=== PATIENT | female | born 1990 | race Caucasian/White ===

== ENCOUNTER → 2016-05-26 | Outpatient (REF) | payer SELFPAY ==
[~2016-05-26] MED LIST: IBUP80TA PO; MOM30SS PO; PERCOCET PO; PNV-CAP5 PO; VICO5TAB16 PO; ZANT150T PO
[2016-05-26 17:04] LABS: FREE T4 0.92 NG/DL (0.76-1.46)
== END ==
LOC: M LABDRAW1 15:29
PROVIDERS: ATTEND Internal Medicine Endocrinology, Diabetes & Metabolism
DX: E06.2 Chronic thyroiditis with transient thyrotoxicosis (principal)

== ENCOUNTER 2016-05-28 10:18 | Emergency (ER) | payer OTHER, SELFPAY ==
[~2016-05-28 10:18] MED LIST changes: -VICO5TAB16 PO
[2016-05-28] MEDS ORDERED: LIDOCAINE 2% MDV 20 ML VIAL SC ONE (11:00)
[2016-05-28] MEDS ORDERED: TETANUS/DIPHTHERIA TOX ADSORB ADULT 0.5ML SYR/VIAL (90714) IM ONE (11:30)
[2016-05-28] MEDS ORDERED: VICO5TAB16 PO (11:51)
[2016-05-28 11:58] VITALS: BP 116/68
== END 2016-05-28 12:02 | disposition home or self-care (01) ==
LOC: M ED 11:43
DX: S61.011A Laceration without foreign body of right thumb without damage to nail, initial encounter (principal); W29.8XXA Contact with other powered hand tools and household machinery, initial encounter; Y92.89 Other specified places as the place of occurrence of the external cause; Y93.89 Activity, other specified; Y99.0 Civilian activity done for income or pay; Z88.1 Allergy status to other antibiotic agents; F17.210 Nicotine dependence, cigarettes, uncomplicated; E03.9 Hypothyroidism, unspecified

== ENCOUNTER → 2017-01-13 | Outpatient (REF) | payer BC ==
[~2017-01-13] MED LIST changes: +VICO5TAB16 PO
== END ==
LOC: M LABDRAW1 14:01
PROVIDERS: ATTEND Internal Medicine Endocrinology, Diabetes & Metabolism
DX: E06.2 Chronic thyroiditis with transient thyrotoxicosis (principal)

== ENCOUNTER → 2017-05-21 | Outpatient (CLI) | payer BC | LOC: M LAB 16:11 | DX: E04.0 Nontoxic diffuse goiter (principal) | CPT/HCPCS: 84443 ==

== ENCOUNTER 2017-06-22 07:38 | Emergency (ER) | payer BC ==
[2017-06-22] MEDS: ONDANSETRON 4 MG ORAL DISINTEGRATING TAB (S0181) PO (09:02)
== END 2017-06-22 09:31 | disposition home or self-care (01) ==
LOC: M ED 07:38
DX: S06.0X0A Concussion without loss of consciousness, initial encounter (principal); X58.XXXA Exposure to other specified factors, initial encounter; Y92.89 Other specified places as the place of occurrence of the external cause; Y93.01 Activity, walking, marching and hiking; J45.909 Unspecified asthma, uncomplicated; E03.9 Hypothyroidism, unspecified; F33.9 Major depressive disorder, recurrent, unspecified; F41.9 Anxiety disorder, unspecified; F17.200 Nicotine dependence, unspecified, uncomplicated; Z98.890 Other specified postprocedural states; Z88.1 Allergy status to other antibiotic agents
CPT/HCPCS: 70450

== ENCOUNTER 2017-09-07 17:23 | Emergency (ER) | payer MEDICAID, BC, SELFPAY | END 2017-09-07 19:25 | disposition home or self-care (01) | LOC: M ED 17:23 | DX: K04.7 Periapical abscess without sinus (principal); J30.9 Allergic rhinitis, unspecified; K08.89 Other specified disorders of teeth and supporting structures; H65.01 Acute serous otitis media, right ear; J45.909 Unspecified asthma, uncomplicated; F41.9 Anxiety disorder, unspecified; F32.9 Major depressive disorder, single episode, unspecified; Z72.0 Tobacco use; Z79.899 Other long term (current) drug therapy; Z88.8 Allergy status to other drugs, medicaments and biological substances | CPT/HCPCS: 99283 ==

== ENCOUNTER 2018-02-09 22:54 | Emergency (ER) | payer MEDICAID ==
[2018-02-10 00:04] LABS: KETONE, URINE AUTO RFX 1+ mg/dL (NEGATIVE); LEUKOCYTE ESTERASE UR AUTO RFX NEGATIVE (NEGATIVE); MUCUS, URINE RFX SMALL (NEGATIVE); NITRITE, URINE AUTO RFX NEGATIVE (NEGATIVE); RBC, URINE AUTO RFX 2 /HPF (0-3); SPECIFIC GRAVITY UR AUTO RFX 1.008 (1.002-1.035); SQUAM EPITHELIAL CELL UR AURFX 1 /HPF (0-6); WBC, URINE AUTO RFX 1 /HPF (0-3)
[2018-02-10] MEDS: GI COCKTAIL 50ML BTL(HYOSCYAMINE/MAALOX/LIDOCAINE VISCOUS)(1:3:1) PO (00:19)
[2018-02-10] MEDS: KETOROLAC 30 MG/ML VIAL (J1885) IV (00:19)
[2018-02-10] MEDS: ONDANSETRON 4MG/2ML VIAL (J2405) IV (00:19)
[2018-02-10 00:47] LABS: ALBUMIN 3.8 GM/DL (3.2-5.2); ALBUMIN/GLOBULIN RATIO 1.12 (1.00-1.93); ALKALINE PHOSPHATASE 68 U/L (45-117); ALT/SGPT 34 U/L (12-78); ANION GAP 9 MEQ/L (8-16); AST/SGOT 20 U/L (7-37); BILIRUBIN,DIRECT 0.2 MG/DL (0.0-0.2); BILIRUBIN,TOTAL 0.7 MG/DL (0.2-1.0); BLOOD UREA NITROGEN 6 MG/DL (7-18); CALCIUM LEVEL 8.7 MG/DL (8.5-10.1); CARBON DIOXIDE LEVEL 27 MEQ/L (21-32); CHLORIDE LEVEL 102 MEQ/L (98-107); CREATININE FOR GFR 0.86 MG/DL (0.55-1.30); GLOMERULAR FILTRATION RATE > 60.0 (>60); GLUCOSE, FASTING 64 MG/DL (70-100); LIPASE 35 U/L (73-393); POTASSIUM SERUM 3.4 MEQ/L (3.5-5.1); SODIUM LEVEL 138 MEQ/L (136-145); TOTAL PROTEIN 7.2 GM/DL (6.4-8.2)
[2018-02-10 00:49] LABS: BASO % 0.2 % (0.0-1.0); EOS # 0.1 10^3/uL (0.0-0.50); EOS % 1.4 % (0.0-3.0); HEMATOCRIT 44.7 % (36.0-47.0); HEMOGLOBIN 15.4 g/dl (12.0-15.5); IMMATURE GRANULOCYTE % 0.4 % (0-3.0); LYMPH # 2.2 10^3/uL (1.5-6.5); LYMPH % 21.4 % (24.0-44.0); MEAN CORPUSCULAR HEMOGLOBIN 32.8 pg (27.0-33.0); MEAN CORPUSCULAR HGB CONC 34.5 g/dl (32.0-36.5); MEAN CORPUSCULAR VOLUME 95.1 fl (80.0-96.0); MONO # 0.7 10^3/uL (0.0-0.8); MONO % 7.2 % (0.0-5.0); NEUTROPHILS # 7.1 10^3/uL (1.8-7.7); NEUTROPHILS % 69.4 % (36.0-66.0); PLATELET COUNT, AUTOMATED 272 10^3/uL (150-450); RED CELL DISTRIBUTION WIDTH 11.9 % (11.5-14.5); WHITE BLOOD COUNT 10.2 10^3/uL (4.0-10.0)
[2018-02-10 01:24] LABS: CONTROL LINE HCG INT CTR LINE PRESENT; HCG, SERUM QUALITATIVE NEGATIVE (NEGATIVE)
== END 2018-02-10 03:43 | disposition home or self-care (01) ==
LOC: M ED 22:54
DX: R10.13 Epigastric pain (principal); F17.210 Nicotine dependence, cigarettes, uncomplicated; Z88.1 Allergy status to other antibiotic agents
CPT/HCPCS: J2405

== ENCOUNTER 2018-02-25 17:51 | Emergency (ER) | payer MEDICAID ==
[2018-02-25] MEDS: NS 1,000 ML IV (18:40)
[2018-02-25] MEDS: ONDANSETRON 4MG/2ML VIAL (J2405) IV ×2 (18:40→22:45)
[2018-02-25] MEDS: MORPHINE 4 MG/ML 1ML VIAL/SYRINGE (J2270) IV (18:41)
[2018-02-25 18:54] LABS: KETONE, URINE AUTO RFX NEGATIVE (NEGATIVE); LEUKOCYTE ESTERASE UR AUTO RFX NEGATIVE (NEGATIVE); MUCUS, URINE RFX SMALL (NEGATIVE); NITRITE, URINE AUTO RFX NEGATIVE (NEGATIVE); RBC, URINE AUTO RFX 2 /HPF (0-3); SPECIFIC GRAVITY UR AUTO RFX 1.004 (1.002-1.035); SQUAM EPITHELIAL CELL UR AURFX 1 /HPF (0-6); WBC, URINE AUTO RFX 0 /HPF (0-3)
[2018-02-25 19:03] LABS: BASO # 0.1 10^3/uL (0.0-0.2); BASO % 0.5 % (0.0-1.0); EOS # 0.3 10^3/uL (0.0-0.50); EOS % 1.3 % (0.0-3.0); HEMATOCRIT 53.9 % (36.0-47.0); HEMOGLOBIN 18.5 g/dl (12.0-15.5); IMMATURE GRANULOCYTE % 1.2 % (0-3.0); LYMPH # 1.8 10^3/uL (1.5-6.5); LYMPH % 9.2 % (24.0-44.0); MEAN CORPUSCULAR HEMOGLOBIN 32.4 pg (27.0-33.0); MEAN CORPUSCULAR HGB CONC 34.3 g/dl (32.0-36.5); MEAN CORPUSCULAR VOLUME 94.4 fl (80.0-96.0); MONO # 1.3 10^3/uL (0.0-0.8); MONO % 6.7 % (0.0-5.0); NEUTROPHILS # 16.1 10^3/uL (1.8-7.7); NEUTROPHILS % 81.1 % (36.0-66.0); PLATELET COUNT, AUTOMATED 367 10^3/uL (150-450); RED BLOOD COUNT 5.71 10^6/uL (4.00-5.40); WHITE BLOOD COUNT 19.9 10^3/uL (4.0-10.0)
[2018-02-25 19:15] LABS: CONTROL LINE UCG INT CTR LINE PRESENT; URINE PREG TEST NEGATIVE (NEGATIVE)
[2018-02-25 19:21] LABS: ALBUMIN 4.1 GM/DL (3.2-5.2); ALBUMIN/GLOBULIN RATIO 1.32 (1.00-1.93); ALKALINE PHOSPHATASE 86 U/L (45-117); ALT/SGPT 38 U/L (12-78); ANION GAP 9 MEQ/L (8-16); AST/SGOT 19 U/L (7-37); BILIRUBIN,DIRECT 0.1 MG/DL (0.0-0.2); BILIRUBIN,TOTAL 0.6 MG/DL (0.2-1.0); BLOOD UREA NITROGEN 8 MG/DL (7-18); CALCIUM LEVEL 8.7 MG/DL (8.5-10.1); CARBON DIOXIDE LEVEL 27 MEQ/L (21-32); CHLORIDE LEVEL 103 MEQ/L (98-107); CREATININE FOR GFR 0.92 MG/DL (0.55-1.30); GLOMERULAR FILTRATION RATE > 60.0 (>60); GLUCOSE, FASTING 84 MG/DL (70-100); LIPASE 46 U/L (73-393); POTASSIUM SERUM 3.9 MEQ/L (3.5-5.1); SODIUM LEVEL 139 MEQ/L (136-145); TOTAL PROTEIN 7.2 GM/DL (6.4-8.2)
[2018-02-25 19:21] LABS: LACTIC ACID SEPSIS PROTOCOL 0.9 MMOL/L (0.4-2.0)
[2018-02-25] MEDS ORDERED: ISOVUE-370 76% 100ML VIAL (Q9967) As Ordered (19:24)
[2018-02-25] MEDS: KETOROLAC 30 MG/ML VIAL (J1885) IV (20:45)
[2018-02-25] MEDS: VANCOMYCIN ORAL SOL 250MG/5ML ORAL SYRINGE PO (22:04)
[2018-02-25] MEDS: OXYCODONE/APAP 5MG/325MG(BULK FOR ED) 1 TABLET PO (22:45)
== END 2018-02-25 23:20 | disposition home or self-care (01) ==
LOC: M ED 17:51
DX: A04.72 Enterocolitis due to Clostridium difficile, not specified as recurrent (principal)
CPT/HCPCS: J2270

== ENCOUNTER 2018-06-24 15:38 | Emergency (ER) | payer OTHER ==
[~2018-06-24] VITALS: Ht 157.5 cm; Wt 96.0 kg
[~2018-06-24 15:38] MED LIST changes: +ACET-683 PO; +CLEO300C2 PO; +FLAG500T PO; +FLON1SPR; +MOTR200T44 PO; +OMEP40CA2 PO; +OXYC1TAB23 PO; +PERC5TAB12 PO; -PERCOCET PO; +TYLE500T78 PO; +VANC125C3 PO; -VICO5TAB16 PO; +VICO5TAB17 PO; +ZOFR4TAB14 PO; +ZYRT10CA5 PO
--- NOTE | 2018-06-24 17:04 | REP ---
Clinical: Trauma. Foreign body. Technique: AP, lateral, bilateral oblique views left foot. Findings: At the site of BB marker, there is a small cyn of presumed glass measuring approximately 3.5 mm maximal length and 1.5 mm maximal width. The osseous structures and joint spaces are intact and normal. There is no evidence for acute fracture or dislocation. Surrounding soft tissues are unremarkable. No subcutaneous emphysema or radiodense foreign body. Impression: Small foreign body. No acute fracture or dislocation. Electronically Signed by Yo Mills MD 06/24/2018 04:55 P
[2018-06-24] MEDS ORDERED: MECLIZINE 25 MG TABLET PO ONE (17:15)
[2018-06-24] MEDS ORDERED: LIDOCAINE 2% W/EPIN INJ 20ML **PRES FREE INJ ONE (17:15)
--- NOTE | 2018-06-24 17:36 | REP ---
Clinical: Dizziness . Comparison: 06/22/2017 . Findings: The ventricles, sulci, and cisterns are normal in position and appearance. Brown-white differentiation is maintained. No acute intracranial hemorrhage, mass/mass effect, pathology or trauma/injury. No evidence for acute infarction. No extra-axial fluid collection. Calvarium is intact. Minimal mucoperiosteal changes involving the ethmoid and sphenoid sinuses. Impression: Normal noncontrast head CT. No evidence for acute intracranial pathology or trauma/injury. Mild sinus disease. Electronically Signed by Yo Mills MD 06/24/2018 05:29 P
[2018-06-24 18:06] LABS: BASO % 0.2 % (0.0-1.0); EOS # 0.2 10^3/uL (0.0-0.50); EOS % 1.8 % (0.0-3.0); HEMATOCRIT 45.7 % (36.0-47.0); HEMOGLOBIN 15.8 g/dl (12.0-15.5); LYMPH # 1.9 10^3/uL (1.5-6.5); MEAN CORPUSCULAR HEMOGLOBIN 32.5 pg (27.0-33.0); MEAN CORPUSCULAR HGB CONC 34.6 g/dl (32.0-36.5); MONO # 0.6 10^3/uL (0.0-0.8); MONO % 6.7 % (0.0-5.0); NEUTROPHILS # 6.1 10^3/uL (1.8-7.7); PLATELET COUNT, AUTOMATED 303 10^3/uL (150-450); RED BLOOD COUNT 4.86 10^6/uL (4.00-5.40); WHITE BLOOD COUNT 8.8 10^3/uL (4.0-10.0)
[2018-06-24 18:44] LABS: ALBUMIN 4.1 GM/DL (3.2-5.2); ALT/SGPT 48 U/L (12-78); BILIRUBIN,DIRECT 0.1 MG/DL (0.0-0.2); BILIRUBIN,TOTAL 0.6 MG/DL (0.2-1.0); BLOOD UREA NITROGEN 9 MG/DL (7-18); CALCIUM LEVEL 8.9 MG/DL (8.5-10.1); CARBON DIOXIDE LEVEL 27 MEQ/L (21-32); CHLORIDE LEVEL 106 MEQ/L (98-107); GLOMERULAR FILTRATION RATE > 60.0 (>60); GLUCOSE, FASTING 81 MG/DL (70-100); POTASSIUM SERUM 4.4 MEQ/L (3.5-5.1); SODIUM LEVEL 141 MEQ/L (136-145); TOTAL PROTEIN 7.2 GM/DL (6.4-8.2)
[2018-06-24 18:51] VITALS: BP 108/59
[2018-06-24] MEDS ORDERED: MECL-68 PO (18:57)
[2018-06-24] MEDS ORDERED: LEVA750T7 PO (18:57)
== END 2018-06-24 19:06 | disposition home or self-care (01) ==
LOC: M ED 15:38
DX: S90.852A Superficial foreign body, left foot, initial encounter (principal); W45.8XXA Other foreign body or object entering through skin, initial encounter; Y92.9 Unspecified place or not applicable; Y93.89 Activity, other specified; Y99.9 Unspecified external cause status; R42 Dizziness and giddiness; J01.90 Acute sinusitis, unspecified; J45.909 Unspecified asthma, uncomplicated; K21.9 Gastro-esophageal reflux disease without esophagitis; F41.9 Anxiety disorder, unspecified; Z72.0 Tobacco use; Z88.8 Allergy status to other drugs, medicaments and biological substances

== ENCOUNTER → 2018-06-29 | Outpatient (REF) | payer OTHER ==
[~2018-06-29] MED LIST changes: +LEVA750T7 PO; +MECL-68 PO
[2018-06-29 13:56] LABS: FREE T4 1.02 NG/DL (0.76-1.46); THYROID STIMULATING HORMONE 2.73 uIU/ML (0.358-3.740)
== END ==
LOC: M SFHCPLAZ 11:57
PROVIDERS: ATTEND Family Medicine
DX: F32.9 Major depressive disorder, single episode, unspecified (principal)

== ENCOUNTER 2019-04-03 19:41 | Emergency (ER) | payer OTHER ==
[~2019-04-03] VITALS: Ht 157.5 cm; Wt 104.5 kg
[~2019-04-03 19:41] MED LIST changes: -MECL-68 PO; +MECL1TAB31 PO; -OMEP40CA2 PO; +OMEP40CA97 PO
[2019-04-03] MEDS ORDERED: ACET-683 PO (20:13)
[2019-04-03] MEDS ORDERED: diphenhydrAMINE INJ 50MG/ML VIAL (J1200) IV STA (21:18)
[2019-04-03] MEDS ORDERED: BENZOCAINE 10% 9GM TUBE (ANBESOL) TOP STA (21:18)
[2019-04-03] MEDS ORDERED: AUGMENTIN 875 MG TAB PO ONE (21:30)
[2019-04-03] MEDS ORDERED: KETOROLAC 30 MG/ML VIAL (J1885) IV ONE (21:30)
[2019-04-03] MEDS ORDERED: METOCLOPRAMIDE INJ 10MG/2ML VIAL (J2765) IV ONE (21:30)
[2019-04-03 21:44] LABS: BASO % 0.4 % (0.0-1.0); EOS # 0.1 10^3/uL (0.0-0.5); HEMATOCRIT 50.8 % (36.0-47.0); HEMOGLOBIN 16.5 g/dl (12.0-15.5); LYMPH # 2.1 10^3/uL (1.5-5.0); LYMPH % 21.3 % (24.0-44.0); MEAN CORPUSCULAR HEMOGLOBIN 31.9 pg (27.0-33.0); MEAN CORPUSCULAR HGB CONC 32.5 g/dl (32.0-36.5); MEAN CORPUSCULAR VOLUME 98.1 fl (80.0-96.0); MONO # 0.7 10^3/uL (0.0-0.8); NEUTROPHILS # 6.7 10^3/uL (1.5-8.5); NEUTROPHILS % 69.8 % (36.0-66.0); PLATELET COUNT, AUTOMATED 285 10^3/uL (150-450); RED BLOOD COUNT 5.18 10^6/uL (4.00-5.40); WHITE BLOOD COUNT 9.6 10^3/uL (4.0-10.0)
--- NOTE | 2019-04-03 23:04 | REPVR ---
PROCEDURE INFORMATION: Exam: CT Head Without Contrast Exam date and time: 04/03/2019 10:32 PM Age: 28 years old Clinical indication: Pain; Headache; Additional info: New LEONARDO, dizziness TECHNIQUE: Imaging protocol: Computed tomography of the head without contrast. Radiation optimization: All CT scans at this facility use at least one of these dose optimization techniques: automated exposure control; mA and/or kV adjustment per patient size (includes targeted exams where dose is matched to clinical indication); or iterative reconstruction. COMPARISON: CT Head without contrast 06/24/2018 5:08 PM FINDINGS: Brain: Normal. No hemorrhage. Unremarkable white matter. No mass effect. Ventricles: Normal. No ventriculomegaly. Bones/joints: Unremarkable. No acute fracture. Sinuses: Visualized sinuses are unremarkable. No fluid levels. Mastoid air cells: Visualized mastoid air cells are well aerated. Soft tissues: Unremarkable. IMPRESSION: Negative noncontrast head CT without change from 06/24/2018. Electronically signed by: Tommy Browne On 04/03/2019 23:04:29 PM
[2019-04-03] MEDS ORDERED: MECLIZINE 25 MG TABLET PO ONE (23:30)
[2019-04-03] MEDS ORDERED: diazePAM 5 MG TAB PO ONE (23:30)
[2019-04-04] MEDS ORDERED: CLEO300C2 PO (00:12)
[2019-04-04] MEDS ORDERED: MECL1TAB31 PO (00:12)
[2019-04-04] MEDS ORDERED: ANBE20GE TOP (00:12)
[2019-04-04 00:27] VITALS: BP 131/88
== END 2019-04-04 00:28 | disposition home or self-care (01) ==
LOC: M ED 19:41
DX: K04.7 Periapical abscess without sinus (principal); R51 Headache; J45.909 Unspecified asthma, uncomplicated; E03.9 Hypothyroidism, unspecified; Z88.1 Allergy status to other antibiotic agents
CPT/HCPCS: 70450; 80047; 84702; 85025; 96374; 96375; 99283; J1200; J1885; J2765

== ENCOUNTER → 2019-05-08 | Outpatient (CLI) | payer OTHER ==
[~2019-05-08] MED LIST changes: +ANBE20GE TOP
--- NOTE | 2019-05-08 12:13 | REP ---
Clinical: Cough . Comparison: 01/01/2016 . Technique: PA and lateral. Findings: The mediastinum and cardiac silhouette are normal. The lung kinney are clear and without acute consolidation, effusion, or pneumothorax. The skeletal structures are intact and normal. Impression: 1. No acute cardiopulmonary process. Electronically Signed by Yo Mills MD 05/08/2019 12:05 P
== END ==
LOC: M RAD 11:49
PROVIDERS: ATTEND Student in an Organized Health Care Education/Training Program
DX: R05 Cough (principal)

== ENCOUNTER 2019-05-25 18:28 | Emergency (ER) | payer OTHER ==
[~2019-05-25] VITALS: Ht 157.5 cm; Wt 99.2 kg
[2019-05-25] MEDS ORDERED: Dayquil PO (18:41)
[2019-05-25] MEDS ORDERED: AMOX875T2 (18:41)
[2019-05-25] MEDS ORDERED: MIRE1IUD IU (18:42)
[2019-05-25 19:23] LABS: BASO % 0.4 % (0.0-1.0); EOS # 0.1 10^3/uL (0.0-0.5); EOS % 1.2 % (0.0-3.0); HEMOGLOBIN 15.7 g/dl (12.0-15.5); LYMPH # 2.5 10^3/uL (1.5-5.0); MEAN CORPUSCULAR HGB CONC 34.9 g/dl (32.0-36.5); MEAN CORPUSCULAR VOLUME 94.5 fl (80.0-96.0); MONO # 0.7 10^3/uL (0.0-0.8); MONO % 7.1 % (0.0-5.0); NEUTROPHILS # 6.9 10^3/uL (1.5-8.5); NEUTROPHILS % 67.1 % (36.0-66.0); PLATELET COUNT, AUTOMATED 367 10^3/uL (150-450); RED BLOOD COUNT 4.76 10^6/uL (4.00-5.40); WHITE BLOOD COUNT 10.3 10^3/uL (4.0-10.0)
[2019-05-25 19:32] LABS: INR 1.03; PROTHROMBIN TIME 13.2 SECONDS (11.8-14.0)
[2019-05-25 19:33] LABS: PARTIAL THROMBOPLASTIN TIME 32.4 SECONDS (25.0-38.4)
[2019-05-25 19:38] LABS: HCG, SERUM QUALITATIVE NEGATIVE (NEGATIVE)
[2019-05-25 19:45] LABS: ALBUMIN 4.5 GM/DL (3.2-5.2); ALT/SGPT 62 U/L (12-78); BILIRUBIN,DIRECT 0.1 MG/DL (0.0-0.2); BILIRUBIN,TOTAL 0.5 MG/DL (0.2-1.0); BLOOD UREA NITROGEN 6 MG/DL (7-18); CALCIUM LEVEL 9.4 MG/DL (8.5-10.1); CARBON DIOXIDE LEVEL 26 MEQ/L (21-32); CHLORIDE LEVEL 101 MEQ/L (98-107); CK-MB VALUE MASS 1.1 NG/ML (<3.6); CPK CREATINE PHOSPHOKINASE 231 U/L (26-192); CREATININE FOR GFR 0.82 MG/DL (0.55-1.30); FREE T4 0.87 NG/DL (0.76-1.46); GLOMERULAR FILTRATION RATE > 60.0 (>60); GLUCOSE, FASTING 74 MG/DL (70-100); HCG, SERUM QUANTITATIVE < 1.0 MIU/ML; MB/CK RELATIVE INDEX 0.48 (< OR =4); NT-PRO BNP 18 PG/ML (<125); POTASSIUM SERUM 3.4 MEQ/L (3.5-5.1); SODIUM LEVEL 136 MEQ/L (136-145); TOTAL PROTEIN 7.9 GM/DL (6.4-8.2); TROPONIN I < 0.02 NG/ML (< 0.10)
--- NOTE | 2019-05-25 20:10 | REP ---
Portable chest, 07:52 p.m., single AP view with the patient upright: Comparison is the PA and lateral chest dated 05/08/2009. The lung kinney are clear. The cardiac size is normal. The ernie, mediastinum, and skeletal structures are unremarkable. Impression: Negative portable chest. There is no interval change. Electronically Signed by Darell Rainey MD 05/25/2019 08:01 P
[2019-05-25 20:29] LABS: D-DIMER QUANT 348.17 ng/ml (<500)
[2019-05-25] MEDS ORDERED: KETOROLAC 30 MG/ML VIAL (J1885) IV ONE (20:45)
[2019-05-25] MEDS ORDERED: KETO10TAB PO (21:46)
[2019-05-25] MEDS ORDERED: Holter Monitor (21:47)
[2019-05-25 21:57] VITALS: BP 114/62
--- NOTE | 2019-05-25 23:24 | ECGEPIP ---
[facility] - ED Test Date: 2019-05-25 Pat Name: RADHA WHEELER Department: Room: - Gender: Female Property Valuer: LENA : 1990 Requested By: TD Fu Order Number: [id number] Reading MD: Td Fernandez Measurements Intervals [place] Rate: 88 P: 37 NH: 127 QRS: 107 QRSD: 104 T: 24 QT: 364 QTc: 442 Interpretive Statements SINUS RHYTHM WITH SINUS ARRHYTHMIA MARKED RIGHT AXIS DEVIATION Nonspecific ST-T wave abnormalities Comparison tracing not on file Electronically Signed on 05-25-2019 23:24:43 EST by Td Fernandez
== END 2019-05-25 22:03 | disposition home or self-care (01) ==
LOC: M ED 18:28
DX: R00.2 Palpitations (principal); R07.89 Other chest pain; J45.909 Unspecified asthma, uncomplicated; E03.9 Hypothyroidism, unspecified; F17.200 Nicotine dependence, unspecified, uncomplicated; Z88.1 Allergy status to other antibiotic agents; Z79.2 Long term (current) use of antibiotics; Z79.899 Other long term (current) drug therapy; Z97.5 Presence of (intrauterine) contraceptive device
CPT/HCPCS: 71045; 80048; 80076; 82550; 82553; 83880; 84439; 84443; 84702; 84703; 85025; 85379; 85610; 85730; 93005; 93041; 94760; 96374; 99285; J1885

== ENCOUNTER → 2020-01-04 | Outpatient (CLI) | payer SELFPAY ==
[~2020-01-04] MED LIST changes: +AMOX875T2; +Dayquil PO; +Holter Monitor; +KETO10TAB PO; +MIRE1IUD IU
== END ==
LOC: M LABSMTC 13:56
PROVIDERS: ATTEND Pediatrics
DX: Z20.828 Contact with and (suspected) exposure to other viral communicable diseases (principal)

== ENCOUNTER → 2020-03-04 | Outpatient (CLI) | payer SELFPAY | LOC: M LABSMTC 19:23 | PROVIDERS: ATTEND Pediatrics | DX: Z11.59 Encounter for screening for other viral diseases (principal) ==

== ENCOUNTER → 2021-02-07 | Outpatient (CLI) | payer OTHER ==
[~2021-02-07] MED LIST changes: +OMEP40CA4 PO; -OMEP40CA97 PO
[2021-02-07 17:44] LABS: BASO % 0.5 % (0.0-1.0); EOS # 0.1 10^3/uL (0.0-0.5); HEMATOCRIT 46.8 % (36.0-47.0); HEMOGLOBIN 15.8 g/dl (12.0-15.5); LYMPH # 1.5 10^3/uL (1.5-5.0); MEAN CORPUSCULAR HGB CONC 33.8 g/dl (32.0-36.5); MEAN CORPUSCULAR VOLUME 94.9 fl (80.0-96.0); MONO # 0.4 10^3/uL (0.0-0.8); MONO % 8.6 % (2.0-8.0); NEUTROPHILS # 2.5 10^3/uL (1.5-8.5); NEUTROPHILS % 55.7 % (36.0-66.0); PLATELET COUNT, AUTOMATED 258 10^3/uL (150-450); RED BLOOD COUNT 4.93 10^6/uL (4.00-5.40); WHITE BLOOD COUNT 4.4 10^3/uL (4.0-10.0)
[2021-02-07 18:26] LABS: ERYTHROCYTE SEDIMENTATION RATE 5 mm/hr (0-20)
[2021-02-07 18:27] LABS: ALBUMIN 3.8 GM/DL (3.2-5.2); ALT/SGPT 45 U/L (12-78); BILIRUBIN,TOTAL 0.3 MG/DL (0.2-1.0); BLOOD UREA NITROGEN 8 MG/DL (7-18); CALCIUM LEVEL 8.8 MG/DL (8.5-10.1); CARBON DIOXIDE LEVEL 27 MEQ/L (21-32); CHLORIDE LEVEL 106 MEQ/L (98-107); CREATININE FOR GFR 0.73 MG/DL (0.55-1.30); GLOMERULAR FILTRATION RATE > 60.0 (>60); GLUCOSE, FASTING 92 MG/DL (70-100); POTASSIUM SERUM 4.2 MEQ/L (3.5-5.1); SODIUM LEVEL 139 MEQ/L (136-145)
== END ==
LOC: M PLALAB 14:40
PROVIDERS: ATTEND Physician Assistant
DX: R42 Dizziness and giddiness (principal)

== ENCOUNTER 2021-02-25 01:36 | Emergency (ER) | payer OTHER ==
[~2021-02-25] VITALS: Ht 157.5 cm; Wt 90.0 kg
[2021-02-25] MEDS ORDERED: CLIN-250 (02:11)
[2021-02-25 08:32] VITALS: BP 127/81
== END 2021-02-25 09:02 | disposition home or self-care (01) ==
LOC: M ED 01:36
DX: L81.9 Disorder of pigmentation, unspecified (principal); J45.909 Unspecified asthma, uncomplicated; Z88.1 Allergy status to other antibiotic agents; Z87.891 Personal history of nicotine dependence

== ENCOUNTER → 2021-03-05 | Outpatient (CLI) | payer OTHER ==
[~2021-03-05] MED LIST changes: +CLIN-250; +PROHANCE 279.3MG/ML 15ML VIAL ONE; +PROHANCE 279.3MG/ML 5ML VIAL ONE
--- NOTE | 2021-03-06 03:39 | REPVR ---
PROCEDURE INFORMATION: Exam: MR Head Without and With Contrast Exam date and time: 03/05/2021 4:14 PM Age: 30 years old Clinical indication: Pain; Headache; Additional info: Dizziness w/ dominique's w/ fatigue TECHNIQUE: Imaging protocol: MR of the head without and with intravenous contrast. Contrast material: PROHANCE; Contrast volume: 18 ml; Contrast route: INTRAVENOUS (IV); COMPARISON: CT Head without contrast 04/03/2019 10:19 PM FINDINGS: Brain: No restricted diffusion within the brain to suggest an acute infarct. Artifactual signal is identified on the axial FLAIR sequence. When correlated with T2 images, there is no significant cerebral white matter disease. No abnormally enhancing intracranial mass is identified. No cerebral edema. Cerebral ventricles: No ventriculomegaly. Bones/joints: There is diffuse nonspecific T1 hypointensity of the skull. This can be associated with red marrow reconversion and marrow hyperplasia, although additional pathology cannot be excluded. Paranasal sinuses: Mucosal thickening with mucous retention cysts or polyps in the left maxillary sinus and right sphenoid sinus. Minimal mucosal thickening of the right maxillary sinus and left frontal sinus. Mucosal thickening of ethmoid air cells bilaterally, most significant anteriorly. Mastoid air cells: Mild effusions within mastoid air cells bilaterally. Internal auditory canals: Evaluation of the internal auditory canals is limited on this study. Orbital cavity: Artifact limits evaluation of the bilateral orbits. Soft tissues: Unremarkable, as visualized. IMPRESSION: 1. No acute infarct. No abnormally enhancing intracranial mass is identified. 2. Mild effusions within mastoid air cells bilaterally. 3. Paranasal sinus disease. 4. Additional findings described above. Electronically signed by: Jona Stone On 03/06/2021 03:38:42 AM
== END ==
LOC: M PLAIMG 14:29
PROVIDERS: ATTEND Physician Assistant
DX: R42 Dizziness and giddiness (principal); R53.83 Other fatigue; R50.9 Fever, unspecified

== ENCOUNTER 2021-05-08 18:59 | Emergency (ER) | payer OTHER ==
[~2021-05-08] VITALS: Ht 157.5 cm; Wt 89.7 kg
[~2021-05-08 18:59] MED LIST changes: -PROHANCE 279.3MG/ML 15ML VIAL ONE; -PROHANCE 279.3MG/ML 5ML VIAL ONE
[2021-05-08] MEDS ORDERED: ACET650T15 PO (19:20)
[2021-05-08] MEDS ORDERED: ACET-683 PO (19:20)
[2021-05-08 20:16] LABS: URINE PREG TEST NEGATIVE (NEGATIVE)
[2021-05-09] MEDS ORDERED: IBUPROFEN 600MG TAB PO ONE (00:45)
[2021-05-09] MEDS ORDERED: IBUPROFEN 800 MG TAB PO ONE (00:50)
[2021-05-09 02:46] VITALS: BP 114/64
== END 2021-05-09 02:47 | disposition home or self-care (01) ==
LOC: M ED 18:59
DX: S06.0X0A Concussion without loss of consciousness, initial encounter (principal); W00.0XXA Fall on same level due to ice and snow, initial encounter; Y92.9 Unspecified place or not applicable; Y93.9 Activity, unspecified; Y99.9 Unspecified external cause status; F17.200 Nicotine dependence, unspecified, uncomplicated; Z88.8 Allergy status to other drugs, medicaments and biological substances; J32.0 Chronic maxillary sinusitis

== ENCOUNTER 2021-06-30 21:46 | Emergency (ER) | payer OTHER ==
[~2021-06-30] VITALS: Ht 157.5 cm; Wt 88.6 kg
[~2021-06-30 21:46] MED LIST changes: +ACET650T15 PO
[2021-06-30 21:47] VITALS: BP 132/72
== END 2021-06-30 23:52 | disposition left against medical advice (07) ==
LOC: M ED 21:46
DX: Z53.21 Procedure and treatment not carried out due to patient leaving prior to being seen by health care provider (principal)

== ENCOUNTER 2022-01-23 20:10 | Emergency (ER) | payer OTHER ==
[~2022-01-23] VITALS: Ht 157.5 cm; Wt 88.3 kg
[2022-01-23 20:52] LABS: BASO # 0.1 10^3/uL (0.0-0.2); BASO % 0.6 % (0.0-1.0); EOS # 0.2 10^3/uL (0.0-0.5); EOS % 2.7 % (0.0-3.0); HEMATOCRIT 42.5 % (36.0-47.0); HEMOGLOBIN 14.6 g/dl (12.0-15.5); LYMPH # 2.3 10^3/uL (1.5-5.0); MEAN CORPUSCULAR HGB CONC 34.4 g/dl (32.0-36.5); MEAN CORPUSCULAR VOLUME 93.2 fl (80.0-96.0); MONO # 0.5 10^3/uL (0.0-0.8); MONO % 6.2 % (2.0-8.0); NEUTROPHILS # 5.6 10^3/uL (1.5-8.5); NEUTROPHILS % 64.2 % (36.0-66.0); PLATELET COUNT, AUTOMATED 277 10^3/uL (150-450); RED BLOOD COUNT 4.56 10^6/uL (4.00-5.40); WHITE BLOOD COUNT 8.8 10^3/uL (4.0-10.0)
[2022-01-23 21:29] LABS: HCG, SERUM QUALITATIVE NEGATIVE (NEGATIVE)
[2022-01-23 21:34] LABS: CK-MB VALUE MASS 3.7 NG/ML (<3.6); CPK CREATINE PHOSPHOKINASE 239 U/L (26-192); MB/CK RELATIVE INDEX 1.55 (< OR =4)
[2022-01-23 21:42] LABS: ALBUMIN 3.9 GM/DL (3.2-5.2); ALT/SGPT 24 U/L (12-78); BILIRUBIN,DIRECT 0.1 MG/DL (0.0-0.2); BILIRUBIN,TOTAL 0.4 MG/DL (0.2-1.0); BLOOD UREA NITROGEN 10 MG/DL (7-18); CALCIUM LEVEL 8.7 MG/DL (8.5-10.1); CARBON DIOXIDE LEVEL 27 MEQ/L (21-32); CHLORIDE LEVEL 105 MEQ/L (98-107); CREATININE FOR GFR 0.82 MG/DL (0.55-1.30); GLOMERULAR FILTRATION RATE > 60.0 (>60); GLUCOSE, FASTING 102 MG/DL (70-100); LIPASE 83 U/L (73-393); MAGNESIUM LEVEL 1.9 MG/DL (1.8-2.4); POTASSIUM SERUM 3.5 MEQ/L (3.5-5.1); SODIUM LEVEL 140 MEQ/L (136-145); TOTAL PROTEIN 7.1 GM/DL (6.4-8.2)
[2022-01-23 22:04] LABS: FREE T4 0.79 NG/DL (0.76-1.46)
[2022-01-23 22:22] LABS: CK-MB VALUE MASS 3.8 NG/ML (<3.6); MB/CK RELATIVE INDEX 1.73 (< OR =4)
[2022-01-23 23:00] VITALS: BP 97/55
== END 2022-01-23 23:27 | disposition home or self-care (01) ==
LOC: M ED 20:10
DX: R00.2 Palpitations (principal); E03.9 Hypothyroidism, unspecified; J45.909 Unspecified asthma, uncomplicated; K21.9 Gastro-esophageal reflux disease without esophagitis; F32.A Depression, unspecified; F41.9 Anxiety disorder, unspecified; Z88.8 Allergy status to other drugs, medicaments and biological substances

== ENCOUNTER → 2022-07-13 | Outpatient (CLI) | payer OTHER | LOC: M RAD 18:27 → M LAB 18:27 | PROVIDERS: ATTEND Physician Assistant Medical | DX: R05.9 Cough, unspecified (principal); R06.02 Shortness of breath ==

== ENCOUNTER → 2022-08-27 | Outpatient (CLI) | payer OTHER ==
[2022-08-27 17:30] LABS: HEMATOCRIT 43.4 % (36.0-47.0); HEMOGLOBIN 14.6 g/dl (12.0-15.5); MEAN CORPUSCULAR HEMOGLOBIN 31.9 pg (27.0-33.0); MEAN CORPUSCULAR HGB CONC 33.6 g/dl (32.0-36.5); PLATELET COUNT, AUTOMATED 265 10^3/uL (150-450); RED BLOOD COUNT 4.57 10^6/uL (4.00-5.40); WHITE BLOOD COUNT 7.1 10^3/uL (4.0-10.0)
[2022-08-27 17:38] LABS: HEMOGLOBIN A1c 4.6 % (4.0-6.0)
[2022-08-27 17:43] LABS: ALBUMIN 4.2 G/DL (3.2-5.2); ALKALINE PHOSPHATASE 74 U/L (46-116); ALT/SGPT 19 U/L (7.0-40); AST/SGOT 19 U/L (<34); BILIRUBIN,TOTAL 0.4 MG/DL (0.3-1.2); BLOOD UREA NITROGEN 6 MG/DL (9-23); CALCIUM LEVEL 8.9 MG/DL (8.5-10.1); CARBON DIOXIDE LEVEL 29 MMOL/L (20-31); CHLORIDE LEVEL 105 MMOL/L (98-107); CREATININE FOR GFR 0.71 MG/DL (0.55-1.30); GLOMERULAR FILTRATION RATE > 60.0 (>60); GLUCOSE, FASTING 83 MG/DL (60-100); POTASSIUM SERUM 4.3 MMOL/L (3.5-5.1); SODIUM LEVEL 140 MMOL/L (136-145); TOTAL PROTEIN 6.7 G/DL (5.7-8.2)
[2022-08-27 17:46] LABS: THYROID STIMULATING HORMONE 3.813 uIU/ML (0.55-4.78); TOTAL 25(OH) VITAMIN D 22.9 NG/ML (20.0-100.0)
[2022-08-27 17:47] LABS: VITAMIN B12 LEVEL 281 PG/ML (211-911)
[2022-08-27 17:48] LABS: FOLATE 9.83 NG/ML (>5.4); FREE T4 0.91 NG/DL (0.89-1.76)
== END ==
LOC: M PLALAB 16:01
PROVIDERS: ATTEND Student in an Organized Health Care Education/Training Program
DX: E66.9 Obesity, unspecified (principal)

== ENCOUNTER → 2022-10-10 | Outpatient (REF) | payer OTHER | LOC: M LAB REF 17:36 | PROVIDERS: ATTEND Physician Assistant Medical | DX: B34.9 Viral infection, unspecified (principal) ==

== ENCOUNTER → 2023-05-13 | Outpatient (CLI) | payer OTHER ==
[~2023-05-13] MED LIST changes: +MECL-209 PO; -MECL1TAB31 PO
== END ==
LOC: M PLARAD 07:43
PROVIDERS: ATTEND Student in an Organized Health Care Education/Training Program
DX: R51.9 Headache, unspecified (principal)

== ENCOUNTER → 2023-06-25 | Outpatient (CLI) | payer OTHER ==
[2023-06-25 13:43] LABS: HEMATOCRIT 45.7 % (36.0-47.0); HEMOGLOBIN 15.6 g/dl (12.0-15.5); MEAN CORPUSCULAR HEMOGLOBIN 32.1 pg (27.0-33.0); MEAN CORPUSCULAR HGB CONC 34.1 g/dl (32.0-36.5); PLATELET COUNT, AUTOMATED 258 10^3/uL (150-450); RED BLOOD COUNT 4.86 10^6/uL (4.00-5.40); WHITE BLOOD COUNT 5.6 10^3/uL (4.0-10.0)
[2023-06-25 14:00] LABS: BLOOD UREA NITROGEN 9 MG/DL (9-23); CALCIUM LEVEL 9.2 MG/DL (8.5-10.1); CARBON DIOXIDE LEVEL 31 MMOL/L (20-31); CHLORIDE LEVEL 104 MMOL/L (98-107); CREATININE FOR GFR 0.73 MG/DL (0.55-1.30); GLOMERULAR FILTRATION RATE > 60.0 (>60); GLUCOSE, FASTING 81 MG/DL (60-100); POTASSIUM SERUM 4.2 MMOL/L (3.5-5.1); SODIUM LEVEL 138 MMOL/L (136-145)
[2023-06-25 14:01] LABS: THYROID STIMULATING HORMONE 5.932 uIU/ML (0.55-4.78); TOTAL 25(OH) VITAMIN D 32.3 NG/ML (20.0-100.0)
[2023-06-25 15:58] LABS: FREE T4 0.94 NG/DL (0.89-1.76)
== END ==
LOC: M PLALAB 11:47
PROVIDERS: ATTEND Student in an Organized Health Care Education/Training Program
DX: R00.2 Palpitations (principal); E55.9 Vitamin D deficiency, unspecified

== ENCOUNTER 2023-07-22 14:48 | Emergency (ER) | payer OTHER ==
[~2023-07-22] VITALS: Ht 157.5 cm; Wt 93.1 kg
[2023-07-22 15:41] LABS: HEMOGLOBIN 15.6 g/dl (12.0-15.5); MEAN CORPUSCULAR HEMOGLOBIN 32.8 pg (27.0-33.0); MEAN CORPUSCULAR HGB CONC 33.9 g/dl (32.0-36.5); MEAN CORPUSCULAR VOLUME 96.6 fl (80.0-96.0); PLATELET COUNT, AUTOMATED 261 10^3/uL (150-450); RED BLOOD COUNT 4.76 10^6/uL (4.00-5.40); WHITE BLOOD COUNT 6.3 10^3/uL (4.0-10.0)
[2023-07-22 16:07] LABS: BLOOD UREA NITROGEN 8 MG/DL (9-23); CALCIUM LEVEL 9.3 MG/DL (8.5-10.1); CARBON DIOXIDE LEVEL 30 MMOL/L (20-31); CHLORIDE LEVEL 105 MMOL/L (98-107); CK-MB VALUE MASS 1.1 NG/ML (<3.6); CPK CREATINE PHOSPHOKINASE 173 U/L (34-145); CREATININE FOR GFR 0.79 MG/DL (0.55-1.30); GLOMERULAR FILTRATION RATE > 60.0 (>60); GLUCOSE, FASTING 91 MG/DL (60-100); MB/CK RELATIVE INDEX 0.63 (< OR =4); POTASSIUM SERUM 4.6 MMOL/L (3.5-5.1); SODIUM LEVEL 139 MMOL/L (136-145)
[2023-07-22 16:10] LABS: HCG, SERUM QUALITATIVE NEGATIVE (NEGATIVE)
[2023-07-22 16:14] VITALS: BP 144/82; TEMP 98; O2SAT 98
[2023-07-22 17:15] LABS: HCG, SERUM QUALITATIVE NEGATIVE (NEGATIVE); LIPASE 22 U/L (12-53)
[2023-07-22 17:17] LABS: ALBUMIN 4.1 G/DL (3.2-5.2); ALKALINE PHOSPHATASE 70 U/L (46-116); ALT/SGPT 35 U/L (7.0-40); AST/SGOT 32 U/L (<34); BILIRUBIN,DIRECT 0.2 MG/DL (<0.4); BILIRUBIN,TOTAL 0.6 MG/DL (0.3-1.2)
[2023-07-22 17:18] LABS: CPK CREATINE PHOSPHOKINASE 171 U/L (34-145); MB/CK RELATIVE INDEX 0.58 (< OR =4)
== END 2023-07-22 17:56 | disposition home or self-care (01) ==
LOC: M ED 14:48
DX: I47.10 Supraventricular tachycardia, unspecified (principal); F17.210 Nicotine dependence, cigarettes, uncomplicated; Z88.8 Allergy status to other drugs, medicaments and biological substances

== ENCOUNTER 2023-08-04 19:12 | Emergency (ER) | payer OTHER ==
[~2023-08-04] VITALS: Ht 157.5 cm; Wt 93.8 kg
[2023-08-04 20:02] LABS: BASO % 0.4 % (0.0-1.0); EOS # 0.1 10^3/uL (0.0-0.5); EOS % 1.1 % (0.0-3.0); HEMATOCRIT 41.7 % (36.0-47.0); HEMOGLOBIN 14.8 g/dl (12.0-15.5); LYMPH # 2.5 10^3/uL (1.5-5.0); LYMPH % 25.1 % (24.0-44.0); MEAN CORPUSCULAR HEMOGLOBIN 32.8 pg (27.0-33.0); MEAN CORPUSCULAR HGB CONC 35.5 g/dl (32.0-36.5); MEAN CORPUSCULAR VOLUME 92.5 fl (80.0-96.0); MONO # 0.6 10^3/uL (0.0-0.8); MONO % 6.4 % (2.0-8.0); NEUTROPHILS # 6.7 10^3/uL (1.5-8.5); NEUTROPHILS % 66.7 % (36.0-66.0); PLATELET COUNT, AUTOMATED 224 10^3/uL (150-450); RED BLOOD COUNT 4.51 10^6/uL (4.00-5.40); WHITE BLOOD COUNT 10.1 10^3/uL (4.0-10.0)
[2023-08-04 20:20] LABS: CK-MB VALUE MASS 2.3 NG/ML (<3.6)
[2023-08-04 20:25] LABS: ALBUMIN 3.8 G/DL (3.2-5.2); ALKALINE PHOSPHATASE 69 U/L (46-116); ALT/SGPT 27 U/L (7.0-40); AST/SGOT 22 U/L (<34); BILIRUBIN,TOTAL 0.5 MG/DL (0.3-1.2); BLOOD UREA NITROGEN 9 MG/DL (9-23); CALCIUM LEVEL 8.9 MG/DL (8.5-10.1); CARBON DIOXIDE LEVEL 26 MMOL/L (20-31); CHLORIDE LEVEL 107 MMOL/L (98-107); CPK CREATINE PHOSPHOKINASE 238 U/L (34-145); CREATININE FOR GFR 0.77 MG/DL (0.55-1.30); GLOMERULAR FILTRATION RATE > 60.0 (>60); GLUCOSE, FASTING 84 MG/DL (60-100); MB/CK RELATIVE INDEX 0.96 (< OR =4); POTASSIUM SERUM 3.4 MMOL/L (3.5-5.1); SODIUM LEVEL 139 MMOL/L (136-145); TOTAL PROTEIN 6.8 G/DL (5.7-8.2)
[2023-08-04] MEDS ORDERED: ISOVUE-370 76% 100ML VIAL As Ordered ONE (21:09)
[2023-08-04] MEDS: NS 1,000 ML IV ONE (21:27)
[2023-08-04] MEDS: POTASSIUM CHLORIDE 10MEQ SR TABLET PO ONE (21:29)
[2023-08-04 21:50] LABS: MAGNESIUM LEVEL 1.8 MG/DL (1.8-2.4)
[2023-08-04 21:54] LABS: CK-MB VALUE MASS 2.3 NG/ML (<3.6); MB/CK RELATIVE INDEX 0.85 (< OR =4)
[2023-08-04 23:31] VITALS: BP 103/58; TEMP 98.2; O2SAT 99
== END 2023-08-04 23:44 | disposition home or self-care (01) ==
LOC: M ED 19:12
DX: R07.9 Chest pain, unspecified (principal); F17.210 Nicotine dependence, cigarettes, uncomplicated; Z88.8 Allergy status to other drugs, medicaments and biological substances
CPT/HCPCS: 71045; 71275; 80053; 82550; 82553; 83735; 84484; 85025; 93005; 93041; 94760; 96360; 96361; 99285; Q9967

== ENCOUNTER → 2023-09-13 | Outpatient (CLI) | payer OTHER | LOC: M WUC 13:43 | PROVIDERS: ATTEND Student in an Organized Health Care Education/Training Program | DX: J20.9 Acute bronchitis, unspecified (principal) ==

== ENCOUNTER → 2023-11-22 | Outpatient (REF) | payer OTHER | LOC: M SFHCPLAZ 19:19 | PROVIDERS: ATTEND Student in an Organized Health Care Education/Training Program | DX: E03.8 Other specified hypothyroidism (principal); R00.2 Palpitations; Z86.59 Personal history of other mental and behavioral disorders ==

== ENCOUNTER → 2023-11-24 | Outpatient (CLI) | payer OTHER ==
[2023-11-24 13:14] LABS: HEMATOCRIT 43.4 % (36.0-47.0); HEMOGLOBIN 14.7 g/dl (12.0-15.5); MEAN CORPUSCULAR HEMOGLOBIN 32.2 pg (27.0-33.0); MEAN CORPUSCULAR HGB CONC 33.9 g/dl (32.0-36.5); MEAN CORPUSCULAR VOLUME 95.2 fl (80.0-96.0); PLATELET COUNT, AUTOMATED 248 10^3/uL (150-450); RED BLOOD COUNT 4.56 10^6/uL (4.00-5.40); WHITE BLOOD COUNT 5.5 10^3/uL (4.0-10.0)
[2023-11-24 13:19] LABS: ALKALINE PHOSPHATASE 62 U/L (46-116); ALT/SGPT 21 U/L (7.0-40); AST/SGOT 15 U/L (<34); BILIRUBIN,TOTAL 0.4 MG/DL (0.3-1.2); BLOOD UREA NITROGEN 11 MG/DL (9-23); CALCIUM LEVEL 8.9 MG/DL (8.5-10.1); CARBON DIOXIDE LEVEL 29 MMOL/L (20-31); CHLORIDE LEVEL 106 MMOL/L (98-107); CHOLESTEROL LEVEL 174 MG/DL (<200); CHOLESTEROL RISK RATIO 3.28 (<5); CREATININE FOR GFR 0.77 MG/DL (0.55-1.30); FOLATE 11.3 NG/ML (>5.4); FREE T4 0.94 NG/DL (0.89-1.76); GLOMERULAR FILTRATION RATE > 60.0 (>60); GLUCOSE, FASTING 87 MG/DL (60-100); HDL CHOLESTEROL 52.9 MG/DL (>40); LDL CHOLESTEROL 101.7 MG/DL (<100); NON-HDL-C 121.1 MG/DL; POTASSIUM SERUM 4.3 MMOL/L (3.5-5.1); SODIUM LEVEL 136 MMOL/L (136-145); TOTAL 25(OH) VITAMIN D 24.4 NG/ML (20.0-100.0); TOTAL PROTEIN 6.6 G/DL (5.7-8.2); TRIGLYCERIDES LEVEL 97 MG/DL (<150); VITAMIN B12 LEVEL 292 PG/ML (211-911)
[2023-11-24 13:27] LABS: HEMOGLOBIN A1c 4.7 % (4.0-6.0)
== END ==
LOC: M PLALAB 10:23
DX: E03.8 Other specified hypothyroidism (principal)

== ENCOUNTER 2024-01-28 20:45 | Emergency (ER) | payer OTHER ==
[~2024-01-28] VITALS: Ht 154.9 cm; Wt 91.3 kg
[2024-01-28 20:50] VITALS: TEMP 98.4
[2024-01-28 21:17] LABS: BASO % 0.4 % (0.0-1.0); EOS # 0.2 10^3/uL (0.0-0.5); HEMATOCRIT 42.9 % (36.0-47.0); LYMPH % 32.1 % (24.0-44.0); MEAN CORPUSCULAR HEMOGLOBIN 32.2 pg (27.0-33.0); MEAN CORPUSCULAR VOLUME 92.1 fl (80.0-96.0); MONO # 0.7 10^3/uL (0.0-0.8); MONO % 7.2 % (2.0-8.0); NEUTROPHILS # 5.5 10^3/uL (1.5-8.5); PLATELET COUNT, AUTOMATED 253 10^3/uL (150-450); RED BLOOD COUNT 4.66 10^6/uL (4.00-5.40); WHITE BLOOD COUNT 9.4 10^3/uL (4.0-10.0)
[2024-01-28 21:54] LABS: LIPASE 26 U/L (12-53)
[2024-01-28 21:56] LABS: ALKALINE PHOSPHATASE 75 U/L (35-104); ALT/SGPT 27 U/L (7.0-40); AST/SGOT 21 U/L (<34); BILIRUBIN,DIRECT 0.1 MG/DL (<0.4); BILIRUBIN,TOTAL 0.3 MG/DL (0.3-1.2); BLOOD UREA NITROGEN 9 MG/DL (9-23); CALCIUM LEVEL 9.2 MG/DL (8.5-10.1); CARBON DIOXIDE LEVEL 28 MMOL/L (20-31); CHLORIDE LEVEL 104 MMOL/L (98-107); CK-MB VALUE MASS 2.3 NG/ML (<3.6); CREATININE FOR GFR 0.78 MG/DL (0.55-1.30); GLOMERULAR FILTRATION RATE > 60.0 (>60); GLUCOSE, FASTING 102 MG/DL (60-100); POTASSIUM SERUM 3.4 MMOL/L (3.5-5.1); SODIUM LEVEL 137 MMOL/L (136-145); TOTAL PROTEIN 7.3 G/DL (5.7-8.2)
[2024-01-28 21:58] LABS: FREE T4 1.17 NG/DL (0.89-1.76); THYROID STIMULATING HORMONE 7.184 uIU/ML (0.55-4.78)
[2024-01-28 22:03] LABS: CPK CREATINE PHOSPHOKINASE 261 U/L (34-145); MB/CK RELATIVE INDEX 0.88 (< OR =4)
[2024-01-28 22:16] LABS: HCG, SERUM QUALITATIVE NEGATIVE (NEGATIVE)
[2024-01-29 02:30] VITALS: BP 106/64; O2SAT 99
== END 2024-01-29 02:53 | disposition home or self-care (01) ==
LOC: M ED 20:45
DX: R00.2 Palpitations (principal); Z88.8 Allergy status to other drugs, medicaments and biological substances

== ENCOUNTER → 2024-04-09 | Outpatient (REF) | payer OTHER, SELFPAY ==
[~2024-04-09] MED LIST changes: +VANC125C13 PO; -VANC125C3 PO
== END ==
LOC: M LAB REF 18:32
PROVIDERS: ATTEND Student in an Organized Health Care Education/Training Program
DX: R30.0 Dysuria (principal)

== ENCOUNTER 2024-12-26 19:22 | Emergency (ER) | payer BC, SELFPAY ==
[~2024-12-26] VITALS: Ht 154.9 cm; Wt 92.1 kg
[~2024-12-26 19:22] MED LIST changes: +ACET-1515 PO; -ACET650T15 PO
[2024-12-26 19:28] VITALS: BP 141/72; TEMP 98.1; O2SAT 98
[2024-12-26] MEDS: AUGMENTIN 875 MG TAB PO ONE (21:56)
[2024-12-26] MEDS ORDERED: ONDA-282 PO (21:56)
[2024-12-26] MEDS: ONDANSETRON 4MG ORAL DISINTEGRATING TAB PO ONE (21:56)
[2024-12-26] MEDS ORDERED: AMOX875T2 PO (21:56)
[2024-12-26] MEDS: NORCO 5/325MG TABLET (HOME DOSE PACK) PO ONE (21:57)
[2024-12-26] MEDS: KETOROLAC 60 MG/2 ML VIAL IM ONE (22:01)
== END 2024-12-26 22:09 | disposition home or self-care (01) ==
LOC: M ED 19:22
DX: K02.9 Dental caries, unspecified (principal); F17.210 Nicotine dependence, cigarettes, uncomplicated; Z88.1 Allergy status to other antibiotic agents; Z79.2 Long term (current) use of antibiotics; Z79.899 Other long term (current) drug therapy
CPT/HCPCS: 96372; 99283; J1885

== ENCOUNTER 2025-01-22 20:17 | Emergency (ER) | payer BC ==
[~2025-01-22] VITALS: Ht 157.5 cm; Wt 90.1 kg
[~2025-01-22 20:17] MED LIST changes: +AMOX875T2 PO; +ONDA-282 PO
[2025-01-22 20:55] LABS: BASO # 0.0 10^3/uL (0.0-0.2); BASO % 0.5 % (0.0-1.0); EOS # 0.1 10^3/uL (0.0-0.5); EOS % 1.3 % (0.0-3.0); LYMPH # 2.0 10^3/uL (1.5-5.0); LYMPH % 30.9 % (24.0-44.0); MONO # 0.6 10^3/uL (0.0-0.8); MONO % 8.6 % (2.0-8.0); NEUTROPHILS # 3.7 10^3/uL (1.5-8.5); NEUTROPHILS % 58.5 % (36.0-66.0); PLATELET COUNT, AUTOMATED 272 10^3/uL (150-450)
[2025-01-22 21:19] LABS: CK-MB VALUE MASS 1.3 NG/ML (<3.6)
[2025-01-22 21:20] LABS: CALCIUM LEVEL 9.4 MG/DL (8.5-10.1); CARBON DIOXIDE LEVEL 27 MMOL/L (20-31); CHLORIDE LEVEL 107 MMOL/L (98-107); CREATININE FOR GFR 0.80 MG/DL (0.55-1.30); GLOMERULAR FILTRATION RATE > 90.0 (>60); POTASSIUM SERUM 4.5 MMOL/L (3.5-5.1); SODIUM LEVEL 142 MMOL/L (136-145)
[2025-01-22 21:36] LABS: CPK CREATINE PHOSPHOKINASE 114 U/L (34-145); MB/CK RELATIVE INDEX 1.14 (< OR =4)
[2025-01-22 22:34] LABS: CK-MB VALUE MASS 1.2 NG/ML (<3.6)
[2025-01-22 22:41] LABS: CPK CREATINE PHOSPHOKINASE 117 U/L (34-145); MB/CK RELATIVE INDEX 1.02 (< OR =4)
[2025-01-23 00:01] VITALS: BP 118/62; TEMP 97; O2SAT 99
== END 2025-01-23 00:18 | disposition left against medical advice (07) ==
LOC: M ED 20:17
DX: Z53.21 Procedure and treatment not carried out due to patient leaving prior to being seen by health care provider (principal)

== ENCOUNTER → 2025-01-29 | Outpatient (CLI) | payer BC ==
[2025-01-29 17:39] LABS: MAGNESIUM LEVEL 2.0 MG/DL (1.8-2.4)
== END ==
LOC: M PLALAB 15:16
PROVIDERS: ATTEND Student in an Organized Health Care Education/Training Program
DX: R00.2 Palpitations (principal)

== ENCOUNTER 2025-02-26 14:46 | Emergency (ER) | payer BC ==
[~2025-02-26] VITALS: Ht 157.5 cm; Wt 92.9 kg
[2025-02-26 15:57] LABS: BASO # 0.0 10^3/uL (0.0-0.2); BASO % 0.4 % (0.0-1.0); EOS # 0.0 10^3/uL (0.0-0.5); EOS % 0.6 % (0.0-3.0); LYMPH # 0.6 10^3/uL (1.5-5.0); LYMPH % 8.0 % (24.0-44.0); MONO # 0.4 10^3/uL (0.0-0.8); MONO % 6.1 % (2.0-8.0); NEUTROPHILS # 5.9 10^3/uL (1.5-8.5); NEUTROPHILS % 84.3 % (36.0-66.0); PLATELET COUNT, AUTOMATED 232 10^3/uL (150-450)
[2025-02-26 16:21] LABS: ALT/SGPT 105 U/L (7.0-40); AST/SGOT 67 U/L (<34); CALCIUM LEVEL 8.3 MG/DL (8.5-10.1); CARBON DIOXIDE LEVEL 25 MMOL/L (20-31); CHLORIDE LEVEL 105 MMOL/L (98-107); CK-MB VALUE MASS < 1.0 NG/ML (<3.6); CPK CREATINE PHOSPHOKINASE 119 U/L (34-145); CREATININE FOR GFR 0.71 MG/DL (0.55-1.30); GLOMERULAR FILTRATION RATE > 90.0 (>60); POTASSIUM SERUM 4.1 MMOL/L (3.5-5.1); SODIUM LEVEL 137 MMOL/L (136-145)
[2025-02-26 16:23] LABS: INR 0.91
[2025-02-26] MEDS: KETOROLAC 30 MG/ML 1 ML VIAL IV ONE (17:32)
[2025-02-26] MEDS: NS (Normal Saline) 0.9% 1,000 ML IV ONE (17:33)
[2025-02-26] MEDS: ACETAMINOPHEN 500 MG TAB PO ONE (17:33)
[2025-02-26] MEDS ORDERED: ISOVUE-370 76% 100 ML VIAL As Ordered ONE (17:52)
[2025-02-26 18:18] LABS: CK-MB VALUE MASS < 1.0 NG/ML (<3.6)
[2025-02-26 18:19] LABS: CPK CREATINE PHOSPHOKINASE 92 U/L (34-145)
[2025-02-26 21:46] VITALS: BP 113/69; TEMP 97.8; O2SAT 97
== END 2025-02-26 21:50 | disposition home or self-care (01) ==
LOC: M ED 14:46
DX: R51.9 Headache, unspecified (principal); R00.2 Palpitations; R74.01 Elevation of levels of liver transaminase levels; F17.210 Nicotine dependence, cigarettes, uncomplicated; F10.10 Alcohol abuse, uncomplicated; Z88.8 Allergy status to other drugs, medicaments and biological substances; Z79.2 Long term (current) use of antibiotics; Z79.899 Other long term (current) drug therapy
CPT/HCPCS: 71045; 71275; 80053; 82248; 82550; 82553; 83690; 84484; 85025; 85610; 93005; 96361; 96374; 99285; J1885; Q9967

== ENCOUNTER → 2025-03-15 | Outpatient (CLI) | payer BC | LOC: M CARPUL 10:10 | DX: R00.2 Palpitations (principal) ==